=== PATIENT | male | born 1970 ===

== ENCOUNTER 2017-01-16 10:16 | Emergency (ER) | payer MEDICAID ==
[2017-01-16 10:22] VITALS: BP 141/96; PULSE 83; TEMP 98; O2SAT 100
[2017-01-16 10:23] VITALS: BMI 28.8
--- NOTE | 2017-01-16 12:29 | ED PDOC ---
Upper Extremity Pain/Injury Time Seen by Provider: 01/16/17 10:40 Chief Complaint (Nursing): Upper Extremity Problem/Injury Chief Complaint (Provider): Right shoulder pain History Per: Patient History/Exam Limitations: no limitations Onset/Duration Of Symptoms: Days (x 7 years) Current Symptoms Are (Timing): Still Present Additional Complaint(s): 46 y/o male who presents to the ED complaining of right shoulder pain for the past 7 years but worsened recently. He also has pain when elevating the right arm. Patient works as a truck driver rubbish collector, and has never had evaluation or imaging of the arm/shoulder. PMD: Jasson Blake Past Medical History Reviewed: Historical Data, Nursing Documentation, Vital Signs Vital Signs: Last Vital Signs Temp 98 F 01/16/17 10:55 Pulse 83 01/16/17 10:55 Resp BP 141/96 H 01/16/17 10:55 Pulse Ox 100 01/16/17 10:55 - Medical History PMH: HTN - Family History Family History: States: Unknown Family Hx - Social History Current smoker - smoking cessation education provided: No Alcohol: Social Drugs: Denies - Home Medications Home Medications: Ambulatory Orders Medication Instructions Recorded Ibuprofen [Motrin] 600 mg PO Q6H PRN #20 tab 01/16/17 - Allergies Allergies/Adverse Reactions: Allergies Allergy/AdvReac Type Severity Reaction Status Date / Time No Known Allergies Allergy Verified 01/16/17 10:55 Review of Systems ROS Statement: Except As Marked, All Systems Reviewed And Found Negative Musculoskeletal: Positive for: Shoulder Pain (Right) Physical Exam - Reviewed Nursing Documentation Reviewed: Yes Vital Signs Reviewed: Yes - Physical Exam Appears: Positive for: Non-toxic, No Acute Distress Head Exam: Positive for: ATRAUMATIC, NORMAL INSPECTION, NORMOCEPHALIC Skin: Positive for: Normal Color, Warm, Dry Eye Exam: Positive for: EOMI, Normal appearance, PERRL Neck: Positive for: Normal, Supple Pulses-Radial (L): 2+ Pulses-Radial (R): 2+ Extremity: Positive for: Capillary Refill (< 2 sec), Other (Difficulty on elevation of right arm and abduction but otherwise neurovascularly intact. Right wrist with full ROM. no deformity/swelling.). Negative for: Normal ROM Neurologic/Psych: Positive for: Alert, Oriented - ECG O2 Sat by Pulse Oximetry: 100 (RA) Pulse Ox Interpretation: Normal Medical Decision Making Medical Decision Making: Patient is here requesting X-Ray. I explained to patient the limitations of an X -Ray, and advised that he may need to follow up with an orthopedist for MRI and further work up. Time: 11:58 Initial Plan: --X-Ray Right Shoulder --Patient given Motrin, 600 mg PO --Pending reevaluation Time: 12:49 X-Ray Right Shoulder: FINDINGS: BONES: There is no acute displaced fracture or bone destruction. Bone alignment and mineralization are normal. JOINTS: Normal. Glenohumeral and acromioclavicular joints preserved. No osteoarthritis. SOFT TISSUES: Normal. OTHER FINDINGS: None. IMPRESSION: No acute fracture or dislocation. --Patient is medically stable for discharge home --Follow up with orthopedist for outpatient MRI for possible ligament iunjury./ rotator cuff injury. Referral provided today. Clinical Impression: Shoulder pain Counseling was provided and all questions were answered regarding diagnosis and need for follow up with Orthopedist. There is agreement to discharge plan. Return if symptoms persist or worsen. Scribe Attestation: Documented by Ofelia Joseph, acting as a scribe for Lesley Knowles MD Provider Scribe Attestation: All medical record entries made by the Scribe were at my direction and personally dictated by me. I have reviewed the chart and agree that the record accurately reflects my personal performance of the history, physical exam, medical decision making, and the department course for this patient. I have also personally directed, reviewed, and agree with the discharge instructions and disposition. Disposition - Clinical Impression Clinical Impression: Shoulder pain - Patient ED Disposition Is Patient to be Admitted: No Counseled Patient/Family Regarding: Studies Performed, Diagnosis, Need For Followup - Disposition Referrals: [facility] [Outside] Alexis Ríos III, MD [Staff Provider] - Disposition: Routine/Home Disposition Time: 13:00 Condition: IMPROVED Additional Instructions: follow up with orthopedist as instructed return to the ED with any worsening or concerning symptoms Prescriptions: Ibuprofen [Motrin] 600 mg PO Q6H PRN #20 tab PRN Reason: Pain, Moderate (4-7) Instructions: Shoulder Sprain (ED) Forms: [facility] (Portuguese) Print Language: MOHAWK
--- NOTE | 2017-01-16 12:50 | RAD ---
PROCEDURE: Radiographs of the Right Shoulder HISTORY: shoulder pain for 7 years COMPARISON: No prior. FINDINGS: BONES: There is no acute displaced fracture or bone destruction. Bone alignment and mineralization are normal. JOINTS: Normal. Glenohumeral and acromioclavicular joints preserved. No osteoarthritis. SOFT TISSUES: Normal. OTHER FINDINGS: None. IMPRESSION: No acute fracture or dislocation.
== END 2017-01-16 14:05 | disposition home or self-care (01) ==
LOC: H.ER 10:16
DX: M25.511 Pain in right shoulder (principal)